=== PATIENT | male | born 1960 | race Caucasian/White ===

== ENCOUNTER 2019-12-09 08:02 | Outpatient (CLI) | payer MEDICARE, OTHER ==
--- NOTE | 2019-12-09 09:19 | MRI ---
MRI CERVICAL SPINE WITHOUT CONTRAST: HISTORY: Cervical radiculopathy. 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 Severe right shoulder pain, x4 months.. COMPARISON: 10/31/2014. FINDINGS: Cervical fusion change at C5-C6 with associated metallic susceptibly artifact. Straightening of cervi sue lordosis may be due to patient position or cervical fusion. No significant STIR hyperintensity to suggest vertebral body edema or ligamentous injury. Visualized brain parenchyma, cervicomedullary junction, cervical cord and the upper thoracic cord hav e a normal size and signal intensity. C2-C3: Minimal left and right paracentral disc bulges. No significant central canal stenosis or signi ficant neural foraminal narrowing. Evaluation is limited by motion degradation. C3-C4: Broad-based discussed by complex abuts the thecal sac. Subarachnoid space is effaced. There is flattening and deformity the cervical cord. Moderate central canal stenosis. No cord hyperintensity. Moderate to severe bilateral foraminal narrowing. Evaluation is limited by motion deg radation. C4-C5: Broad-based disc-osteophyte complex with severe central canal stenosis. Moderate to severe trice ateral foraminal narrowing. Left facet hypertrophy. Evaluation is limited by motion degradation. C5-C6: Broad-based osteophyte ridge with moderate to severe central canal stenosis. Moderate bilatera l foraminal narrowing. C6-C7: There appears to be a central disc herniation which deforms the thecal sac. There is at least moderate central canal stenosis based upon the sagittal images as well as the axial T1-weighted images. Axial T2 images are limited in evaluation due to metallic susceptibility artifact. Moderate b ilateral foraminal narrowing. Evaluation is limited by motion degradation and metallic susceptibly artifact.. C7-T1: No significant central canal stenosis. Moderate bilateral foraminal narrowing due to uncoverte bral hypertrophy. IMPRESSION: 1. Cervical fusion at C5-C6. Associated metallic susceptibly artifact. 2. No fracture. 3. Varying degrees of significant central canal stenosis and neural foraminal narrowing as detailed a keila. Transcribed Date/Time: 12/09/2019 9:34 AM
--- NOTE | 2019-12-09 09:27 | MRI ---
MRI OF RIGHT SHOULDER PERFORMED WITHOUT CONTRAST ENHANCEMENT: HISTORY: Severe right shoulder pain for 4 months. FINDINGS: Motion artifact does significantly degrade the detail of this examination. There is mild to moderate arthrosis of the AC joint. The supra- as well as infraspinatus tendons are intact. Subscapularis muscle and tendon are intact and the biceps tendon is in a normal position within the b icipital groove. The motion artifact does degrade detail of the labrum; however, there is a SLAP-type tear involving t he superior labrum with increased signal change and irregularity to the labrum at the level of biceps anchor. These changes extend into the posterior superior labrum. Changes are seen at least to the mid equator level and there is some increased signal change of the base of the posterior inferior lab rum. The inferior glenohumeral ligament is a very indistinct structure. There is increased signal change in the region of the axillary pouch. The inferior glenohumeral ligament appears thickened. Increase d signal changes are particularly pronounced near the numeral attachment. I have no history of an i njury. This may be the sequelae of an old injury. Some of this could indicate capsulitis-type shaikh es. There are some mild edema changes in the rotator cuff interval. No significant rotator cuff muscle atrophy. IMPRESSION: 1. No evidence of rotator cuff tear. 2. Fairly extensive superior labrum anterior to posterior-type tear beginning at the level of the bi ceps anchor and extending into the posterior superior and probably some portion of the posterior infe rior labrum. 3. Very indistinct inferior glenohumeral ligament also appears thickened in addition to some increas ed signal change in the axillary pouch. This could be the sequelae of a previous injury; however, it could also be related to capsulitis changes. POS: [facility]
== END 2019-12-09 08:03 | disposition home or self-care (01) ==
LOC: TBSIIMAG 08:02
PROVIDERS: ATTEND Neurological Surgery
DX: M50.10 Cervical disc disorder with radiculopathy, unspecified cervical region (principal); S43.431A Superior glenoid labrum lesion of right shoulder, initial encounter; M48.02 Spinal stenosis, cervical region; M48.03 Spinal stenosis, cervicothoracic region; Z98.1 Arthrodesis status
CPT/HCPCS: 72141